=== PATIENT | male | born 1945 | race Caucasian/White ===

== ENCOUNTER 2017-02-01 07:08 | Outpatient (CLI) | payer MEDICARE, OTHER ==
[~2017-02-01] VITALS: Ht 167.6 cm; Wt 84.1 kg
--- NOTE | ~2017-02-01 | HEMODYNAMI ---
PATIENT:ALKA AMES JR MEDICAL RECORD: [id number] : 45 LOCATION:D.CAT ADMISSION DATE: 02/01/17 Generatedon:02/01/201710:30 Patient name: ALKA AMES Patient #: [id number] SSN: [id number] : 1945 Date of study: 02/01/2017 Page: Of Hemodynamic Procedure Report Patient Data Patient Demographics Procedure consent was obtained First Name: ALKA Gender: Male Last Name: HUI Suffix: Jr Vega Initial: O : 1945 Patient #: [id number] Age: 71 year(s) Race: SSN: [id number] Additional ID: [id number] Contact details Address: [address] [place] [address] point State: [place] City: [place] Zip code: [address] Past Medical History Allergies Allergen Reaction Date Comments Reported Penicillins 11/25/2015 Statins 11/25/2015 Sulfa drugs 11/25/2015 Other allergy 02/01/2017 PCN, Sulfa, Statins Admission Admission Data Admission Date: 02/01/2017 Admission Time: 7:08 Arrival Date: 02/01/2017 Arrival Time: 9:00 Admit Source: Other Insurance Payor: Medicare Height (in.): 66 BSA: 1.92 (m2) Height (cm.): 167.64 BMI: 29.38 (kg/m2) Weight (lbs.): 182 Weight (kg.): 82.55 Lab Results Lab Result Date: 02/01/2017 Lab Result Time: 0:00 Biochemistry Name Units Result Min Max BUN mg/dl 18 --(---*)-- 7 18 Creatinine mg/dl 0.9 --(-*--)-- 0.6 1.3 CBC Name Units Result Min Max Hemoglobin g/dl 14.4 --(*---)-- 13.5 17.5 Procedure Procedure Types Cath Procedure Diagnostic Procedure C LHC w/Coronaries Miscellaneous Procedures Moderate Sedation up to 30 minutes Procedure Description Procedure Date Procedure Date: 02/01/2017 Procedure Start Time: 10:17 Procedure End Time: 10:28 Procedure Staff Name Function Luis Miguel Mckeon MD Performing Physician Kyra Chong RT Scrub Wendie Kline RN Nurse Zara Drummond RT Monitor Procedure Data Cath Procedure Fluoroscopy Diagnostic fluoroscopy Total fluoroscopy Time: 2.1 time: 2.1 min min Diagnostic fluoroscopy Total fluoroscopy dose: 407 dose: 407 mGy mGy Contrast Material Contrast Material Type Amount (ml) Isovue 300 42 Entry Location Entry Primary Successful Side Size Upsize Upsize Entry Closure Muñoz ccessful Closure Location (Fr) 1 (Fr) 2 (Fr) Remarks Device Remarks Radial Right 6 Fr Mechanical artery Short Compression Estimated blood loss: 5 ml Diagnostic catheters Device Type Used For End Catheter Placement Terumo 5Fr Jethro 110cm Multi-vessel catheter Angiography Procedure Complications No complications Procedure Medications Medication Administration Route Dosage Oxygen NC 2 l/min Lidocaine 2% added to field 20 Heparin Flush Bag added to field 2 bags (1000units/500ml NS) 0.9% NaCl I.V. 100 ml/hr Versed I.V. 1 mg Fentanyl I.V. 50 mcg Versed I.V. 0.5 mg Fentanyl I.V. 25 mcg Radial Cocktail I.A. 1 syringe (Verapomil 2mg/Nitro 400mcg/Heparin 1500units) Hemodynamics Rest BSA: 1.92 (m2) HGB: 14.4 (g/dl) O2 Consumption: Estimated: 229.96 (ml/min) O2 Co nsumption indexed: Estimated:119.77 (ml/min/m) Heart Rate: 81 (bpm) Pressure Samples Time Site Value (mmHg) Purpose Heart Use Rate(bpm) 10:22 LV 87/-10,-3 Snapshot 99 10:23 AO 64/42(49) Pullback 89 10:23 LV 93/-9,-1 Pullback 89 Gradients Valve Time Site 1 Site 2 Mean SEP/DFP Peak To Heart Use (mmHg) (sec/min) Peak Rate (mmHg) (bpm) Aortic 10:23 LV AO 8 21 29 89 93/-9,-1 64/42(49) Calculations Valve P-P Mean Valve Index Valve Source Name Gradient Area Flow (cm2) Aortic 29 8 29 8 Snapshots Pre Cath Intra NCS Post Cath Vital Signs Time Heart Resp SPO2 NIBP (mmHg) Rhythm Pain Sedation Rate (ipm) (%) Status Level (bpm) 9:49:28 75 17 100 119/68(109) NSR 0 (11) 10(A) , No pain 9:53:40 77 14 99 117/66(92) NSR 0 (11) 10(A) , No pain 9:57:50 76 13 98 97/62(78) NSR 0 (11) 10(A) , No pain 10:01:56 78 13 97 93/56(70) NSR 0 (11) 10(A) , No pain 10:06:01 74 15 98 98/55(75) NSR 0 (11) 10(A) , No pain 10:10:07 73 13 99 89/59(73) NSR 0 (11) 10(A) , No pain 10:14:11 76 13 98 99/56(77) NSR 0 (11) 9(A) , No pain 10:18:19 73 13 98 98/55(75) NSR 0 (11) 9(A) , No pain 10:22:26 83 14 98 75/44(58) NSR 0 (11) 9(A) , No pain 10:26:24 80 15 97 89/60(74) NSR 0 (11) 10(A) , No pain Medications Time Medication Route Dose Verified Delivered Reason Notes Effectiveness by by 9:46:38 Oxygen NC 2 l/min Luis Miguel Buffie used for Mike Kline RN procedure 9:46:58 Lidocaine 2% added 20ml Luis Miguel Luis Miguel for local to vial Mike Mckeon MD anesthetic field 9:47:04 Heparin Flush added 2 bags Luis Miguel Luis Miguel used for Bag to Mike Mckeon MD procedure (1000units/500ml field NS) 9:47:14 0.9% NaCl I.V. 100 Luis Miguel Buffie Per ml/hr Mike Kline RN physician 10:08:18 Versed I.V. 1 mg Luis Miguel Buffie for sedation Mike Kline RN 10:08:23 Fentanyl I.V. 50 mcg Luis Miguel Buffie for sedation Mike Kline RN 10:16:44 Versed I.V. 0.5 mg Luis Miguel Buffie for sedation Mike Kline RN 10:16:49 Fentanyl I.V. 25 mcg Luis Miguel rapp sedation Mike Kline RN 10:20:16 Radial Cocktail I.A. 1 Luis Miguel Bolanos for (Verapomil syringe Mike Mckeon MD vasodilation 2mg/Nitro 400mcg/Heparin 1500units) Procedure Log Time Note 9:25:44 Wendie lKine RN sent for patient. Start room use. 9:34:40 Informed consent obtained and on chart 9:36:11 Patient Height : 167.64 cm 9:36:14 Patient Weight : 82.55 kg 9:36:14 Admit Source: Other 9:36:25 Arrival Date: 02/01/2017 9:00:00 AM 9:36:41 Insurance Payor : Medicare 9:38:06 Diagnostic Cath Status : Elective 9:38:51 Time tracking: Regular hours 9:38:54 Plan of Care:Hemodynamics will remain stable., Cardiac rhythm will remain stable., Comfort level will be maintained., Respiratory function will remain adequate., Patient/ family verbilizes understanding of procedure., Procedure tolerated without complication., Recovers from procedure without complications.. 9:38:59 Patient received from Pre/Post Procedure Room to CCL 2 Alert and oriented. Tansferred to table in Supine position. 9:39:00 Warm blankets applied, and nasim hugger turned on for patient comfort. 9:39:00 Correct patient and procedure confirmed by team. 9:39:00 ECG and BP/O2 sat monitors applied to patient. 9:46:38 Oxygen 2 l/min NC was administered by Wendie Kline RN; used for procedure; 9:46:58 Lidocaine 2% 20ml vial added to field was administered by Luis Miguel Mckeon MD; for local anesthetic; 9:47:04 Heparin Flush Bag (1000units/500ml NS) 2 bags added to field was administered by Luis Miguel Mckeon MD; used for procedure; 9:47:14 0.9% NaCl 100 ml/hr I.V. was administered by Wendie Kline RN; Per physician; 9:47:20 Vital chart was started 9:50:28 Baseline sample Acquired. 9:50:29 Full Disclosure recording started 9:50:43 H&P Date Dictated: 01/30/2017 Within 30 days and on chart., H&P Addendum completed by physician on day of procedure. (MUST COMPLETE FOR ALL OUTPATIENTS). 9:50:44 Pre-procedure instructions explained to patient. 9:50:47 Family in waiting room. 9:50:49 Patient NPO since Midnight. 9:51:17 Patient allergic to Other allergyPCN, Sulfa, Statins 9:51:21 Is the patient allergic to Iodine/contrast media? No. 9:51:30 Is patient on blood thinner?No 9:51:34 Patient diabetic? No. 9:51:40 Snore? No 9:51:43 Sleep apnea? No 9:51:49 Airway obstruction? Yes COPD 9:51:53 Dentures? No ? 9:52:06 IV patent on arrival in left forearm with 0.9% NaCl at [facility]. 9:52:13 Lab results completed and on chart. 9:52:16 Right Radial & Right Groin area was prepped with chlora-prep and draped in sterile fashion 9:52:17 Alarms reviewed by R. N. 9:52:18 Sharps counted by scrub and verified by R.N. 9:52:19 Physician paged 9:56:07 Baseline sample Acquired. 9:56:13 Rhythm: sinus rhythm , w/ ST elevation 9:56:20 Was the patient premedicated? No 9:56:26 Previous problem with sedation/anesthesia? No ? 9:56:29 Deviated septum? No 9:56:30 Opens mouth fully? Yes 9:56:31 Sticks out tongue? Yes 9:56:34 Pre procedure: right dorsailis pedis pulse 1+ Palpable, but thready & weak; easily obliterated 9:56:36 Modified Sushant's test Radial < 7 seconds 9:56:38 Patient pain scale 0/10 ?. 9:58:38 Lab Result : BUN 18 mg/dl 9:58:38 Lab Result : Creatinine 0.9 mg/dl 9:58:38 Lab Result : Hemoglobin 14.4 g/dl 9:58:42 Physician arrived 9:58:42 --------ALL STOP TIME OUT------ 9:58:43 Final Timeout: patient, procedure, and site verified with staff and physician. All members of the team are in agreement. 9:58:46 Right Radial & Right Groin site verified by team. 9:58:48 Physical assessment completed. ASA score P 2 - A patient with mild systemic disease as per Luis Miguel Mckeon MD. 9:58:52 Sedation plan: IV Moderate Sedation Versed, Fentanyl 9:59:12 Use device set Radial Dx 9:59:13 Acist Syringe opened to sterile field. 9:59:14 Medline Cath Pack opened to sterile field. 9:59:14 Bag Decanter opened to sterile field. 9:59:14 Terumo 6Fr Slender Glidesheath opened to sterile field. 9:59:15 St Sony 260cm J .035 wire opened to sterile field. 9:59:15 Acist Hand Control opened to sterile field. 9:59:15 Acist Manifold opened to sterile field. 9:59:16 Tegaderm 4 x 4 opened to sterile field. 9:59:16 MBrace Wrist Support opened to sterile field. 10:07:42 Zero performed for pressure channel P1 10:08:18 Versed 1 mg I.V. was administered by Wendie Kline RN; for sedation; 10:08:23 Fentanyl 50 mcg I.V. was administered by Wendie Kline RN; for sedation; 10:16:44 Versed 0.5 mg I.V. was administered by Wendie Kline RN; for sedation; 10:16:49 Fentanyl 25 mcg I.V. was administered by Wendie Kline RN; for sedation; 10:17:21 Procedure started. 10:17:25 Local anesthetic to right radial artery with Lidocaine 2% by Luis Miguel Mckeon MD.INITIAL ACCESS ONLY 10:19:06 A 6 Fr Short sheath was inserted into the Right Radial artery 10:20:12 A Terumo 5Fr Jethro 110cm catheter was advanced over the wire and used for Multi-vessel Angiography. 10:20:16 Radial Cocktail (Verapomil 2mg/Nitro 400mcg/Heparin 1500units) 1 syringe I.A. was administered by Luis Miguel Mckeon MD; for vasodilation; 10:20:19 Zero performed for pressure channel P1 10:22:27 LV hemodynamics recorded. 10:22:28 LV gram done using ROLAND 10:22:31 Injector settings: Ml/sec: 5, Volume: 15, 10:22:44 EF : 55 % 10:23:09 LCA angiography performed. 10:23:12 Injector settings: Ml/sec: 3, Volume: 6, 10:24:45 RCA angiography performed. 10:25:04 Injector settings: Ml/sec: 3, Volume: 6, 10:25:47 Catheter removed. 10:26:20 Terumo TR Band Standard opened to sterile field. 10:26:29 Sheath removed intact; hemostasis achieved with Mechanical Compression to the Right Radial artery. 10:26:30 Procedure ended.(Physican Out) 10:26:46 Fluoroscopy time 02.10 minutes. 10::50 Flurop Dose total: 407 10:26:50 Fluoroscopy dose: 407 mGy 10:26:54 Contrast amount:Isovue 300 42ml. 10:26:56 Sharps counted by scrub and verified by R.N. 10:26:58 TR band inflated with 10cc of air. 10:27:00 Insertion/operative site no bleeding no hematoma. 10:27:35 Post right radial artery:stable 10:27:37 Post Procedure Pulses reassessed and unchanged 10:27:48 Post procedure rhythm: unchanged. 10:27:51 Estimated blood loss: 5 ml 10:27:59 Post procedure instruction explained to patient.Patient verbalizes understanding. 10:28:00 Patient needs reinforcement of post procedure teaching. 10:28:14 Procedure type changed to Cath procedure, Diagnostic procedure, LHC, LHC w/Coronaries, Miscellaneous Procedures, Moderate Sedation up to 30 minutes 10:28:15 Procedure and supply charges have been captured, reviewed, submitted and are correct. 10:28:20 Procedure Complication : No complications 10:28:29 Vital chart was stopped 10:28:30 See physician's report for complete and final results. 10:28:35 Report given to Pre/Post Procedure Room. 10:28:38 Patient transfered to Pre/Post Procedure Room with Stretcher. 10:28:40 Procedure ended. 10:28:40 Full Disclosure recording stopped 10:28:45 End room use (Document Last) Device Usage Item Name Manufacture Quantity Catalog Hospital Part Current Minimal Lot# / Number Charge Number Stock Stock Serial# Code Acist Acist 1 [id number] [id number] 261952 055299 20 Syringe Medical [employer] Inc Medline Cardinal 1 [id number] 60152 573144 5 Cath Pack Health Bag Microtek 1 [id number] 68725 570623 5 [employer] Terumo 6Fr Terumo 1 [id number] 939595 123564 017809 [address] St Sony 1 518477 237062 419050 149883 30 260cm J .035 wire Acist Hand Acist 1 66218 623845 324887 718718 5 Control Medical [employer] Inc Acist Acist 1 48604 315167 904586 464834 5 Manifold Medical [employer] Inc Tegaderm 4 3M 1 1626W 938706 898497 216997 5 x 4 MBrace Advanced 1 140-0250-00 381856 20195 428458 5 Wrist Vascular Support Dynamics Terumo 5Fr Terumo 1 90-8977 817472 701694 267483 5 Jethro 110cm catheter Terumo TR Terumo 1 [id number] 410184 949516 40 Band Standard Signature Audit [place] Stage Time Signature Unsigned Intra-Procedure 02/01/2017 Zara Drummond 10:30:49 AM RT(R) Signatures Monitor : Zara Drummond RT Signature : Date : Time : [place] [id number] [place] [address]
[~2017-02-01 07:08] MED LIST: BAYER CHEWABLE81 MG PO; CLOBETASOL PROP15 GM TP; DULERA 100 MCG8.8 GM INH; FLOMAX0.4 MG PO; MELATONIN 3 MG1 TAB PO; OMEPRAZOLE20 M1 PO; PROSCAR5 MG; VIBRAMYCIN 100100 MG PO
[2017-02-01] MEDS ORDERED: METOPROLOL TART25 MG PO (07:41)
[2017-02-01 07:45] VITALS: BP 117/61; Ht 167.6 cm; Wt 84.1 kg
[2017-02-01 07:54] LABS: CALC OSMOLALITY 278 mosm/kg (275-300); CARBON DIOXIDE 26.7 mmol/L (21.0-32.0); CHLORIDE - SERUM 102 mmol/L (98-107); CREATININE - SERUM 0.9 mg/dL (0.6-1.3); GLUCOSE 112 mg/dL (74-106); SODIUM 138 mmol/L (136-145); UREA NITROGEN 18 mg/dL (7-18); eGFR NON AFRICAN AMERICAN 88 mL/min (90-120)
[2017-02-01 08:02] LABS: BASOPHILS 0.5 % (0-2); EOSINOPHILS 2.7 % (0-7); HEMATOCRIT 42.7 % (42.0-54.0); HEMOGLOBIN 14.4 g/dL (13.5-17.5); IMMATURE GRANULOCYTES 0.1 % (0-5); LYMPHOCYTES 28.5 % (15-50); MCH 30.9 pg (26.0-34.0); MCHC 33.7 g/dL (31.0-37.0); MCV 91.6 fL (80.0-100.0); MEAN PLATELET VOLUME 12.4 fL (7.4-10.4); MONOCYTES 9.7 % (2-11); NEUTROPHILS 58.5 % (40-80); PLATELET COUNT 144 10x3/uL (130-400); RBC 4.66 10x6/uL (4.20-6.10); RDW 12.7 % (11.5-14.5); WBC 7.7 10x3/uL (4.8-10.8)
--- NOTE | 2017-02-01 10:53 | NUR ---
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 TR BAND CDI TO RIGHT WRIST. RIGHT HAND IS WARM, CAP REFILL IS BRISK. AT BEDSIDE, CALL LIGHT IN REACH.
--- NOTE | 2017-02-01 11:14 | NUR ---
1055 PT SLEEPING, AWKAKENS TO VERBAL STIMULI, DENIES ANY C/O. TR BAND WITH NO BLEEDING OR HEMATOMA NOTED. FINGERS WARM, CAP REFILL IS BRISK. FAMILY AT BEDSIDE, CALL IGHT IN REACH.
--- NOTE | 2017-02-01 11:25 | NUR ---
1115 PT DENIES ANY C/O. TR BAND IS CDI, NO BLEEDING OR HEMATOMA NOTED. DENIES ANY C/O. AT BEDSIDE.
--- NOTE | 2017-02-01 11:43 | NUR ---
1140 PT DENEIS ANY C/O. TR BAND IS CDI TO RIGHT WRIST. CALL LIGHT IN REACH. FAMILY AT BEDSIDE.
--- NOTE | 2017-02-01 11:50 | NUR ---
1145 ATTEMPTED TR BAND DEFLATION, OOZING STARTED WTIH LESS THAN 1 CC OF AIR REMOVED. AIR RE-INSTILLED WITH BLEEDING STOPPED. WILL CONTINUE TO MONITOR.
--- NOTE | 2017-02-01 12:18 | NUR ---
1215 ATTEMPTING TR BAND DEFLATION WITH 2 CC OF AIR REMOVED AND SITE OOZING AGAIN. 2 CC OF AIR RE-INSTILLED AND OOZING STOPPED. WILL CONTINUE TO MONITOR. AT BEDSIDE. PT DENEIS ANY C/O AT THIS TIME.
--- NOTE | 2017-02-01 13:24 | NUR ---
1315 2 CC OF AIR REMOVED FROM TR BAND WITH NO BLEEDING OR HEMATOMA NOTED. PT DENIES ANY C/O. HAS HARPREET PO FLUIDS AND SANDWICH. AT BEDSIDE, CALL LIGHT IN REACH.
--- NOTE | 2017-02-01 14:24 | NUR ---
1415 ALL AIR REMOVED FROM TR BAND AND NO BLEEDING OR HEMATOMA NOTED. FINGERS WARM AND CAP REFILL IS BRISK. PT DENIES ANY C/O AT THIS TIME.
--- NOTE | 2017-02-01 14:41 | NUR ---
1440 2X2 AND TEGADERM REMAIN CDI TO RIGHT WRIST WITH NO BLEEDING OR HEMATOMA NOTED. CAP REFILL TO FINGERS IS BRISK, FINGERS WARM AND PULSES PRESENT. IV DC'D WITH CATH INTACT. REVIEWED DC INSTRUCTIONS WTIH PT WHO VERBALIZES UNDERSTANDING. AWAITING PT'S 'S RETURN FOR DC.
--- NOTE | 2017-02-01 15:13 | NUR ---
1510 PT'S HAS RETURNED. PT DRESSED FOR DC TO HOME, HAS AMBULATED TO THE BATHROOM AND VOIDED QS. PT ESCORTED TO PRIVATE AUTO VIA WC BY STAFF WITH DRIVING HIM HOME.
== END 2017-02-01 15:10 | disposition home or self-care (01) ==
LOC: D.CATH 07:08
PROVIDERS: Internal Medicine Cardiovascular Disease
DX: I25.10 Atherosclerotic heart disease of native coronary artery without angina pectoris (principal); R94.30 Abnormal result of cardiovascular function study, unspecified; F17.200 Nicotine dependence, unspecified, uncomplicated; I10 Essential (primary) hypertension; Z01.812 Encounter for preprocedural laboratory examination

== ENCOUNTER → 2017-04-03 09:07 | Outpatient (CLI) | payer MEDICARE, OTHER ==
[2017-02-01 07:45] VITALS: BMI 29.9
[~2017-04-03 09:07] MED LIST changes: +METOPROLOL TART25 MG PO
[2017-04-10 03:11] LABS: OVA + PARASITE EXAM Final report (())
== END | disposition home or self-care (01) ==
LOC: D.LAB 09:07
PROVIDERS: Internal Medicine Gastroenterology
DX: R19.7 Diarrhea, unspecified (principal)

== ENCOUNTER → 2019-06-18 08:42 | Outpatient (CLI) | payer MEDICARE, OTHER ==
[2017-02-01 07:45] VITALS: BMI 29.9
== END | disposition home or self-care (01) ==
LOC: D.HCCARDIO 08:42
PROVIDERS: ATTEND Internal Medicine Cardiovascular Disease
DX: I25.10 Atherosclerotic heart disease of native coronary artery without angina pectoris (principal)